=== PATIENT | female | born 1940 | race Caucasian/White ===

== ENCOUNTER 2017-05-20 17:50 | Emergency (ER) | END 2017-05-20 22:21 | disposition home or self-care (01) ==

== ENCOUNTER 2017-05-21 22:31 | Inpatient (IN) | END 2017-05-23 14:20 | disposition home or self-care (01) | DRG 872 ==

== ENCOUNTER 2018-03-08 21:34 | Emergency (ER) | END 2018-03-08 22:27 | disposition home or self-care (01) ==